=== PATIENT | male | born 1990 | race Caucasian/White ===

== ENCOUNTER 2016-12-27 10:27 | Emergency (ER) | payer MEDICAID ==
[~2016-12-27] VITALS: Ht 157.5 cm; Wt 47.6 kg
[~2016-12-27 10:27] MED LIST: FLEXERIL10 MG PO; IBU-8800 MG PO; KEFLEX 500MG.500 MG PO; MOTRIN400 MG PO; NOMEDS *; PEN-VK500 MG PO; VOLTAREN75 MG PO
[2016-12-27 11:06] VITALS: BP 127/94
--- NOTE | 2016-12-27 11:07 | Urgent Treatment Center Report ---
History of Present Issue Date/Time Seen by Provider 12/27/16 1035 Visit Reason Pt arrived:Walked Presenting Problem:PT STATES HE HAS A BUG IN HIS LEFT EAR Location if Accident: Onset of symptoms date/time:/ or onset unknown for:MEDICAL HX UNKNOWN Have you (or family members/close friends) recently traveled outside the [place]? N If Yes, where/when: Have you had exposure to infectious disease within the past month? TB? Other? Specify: c/o waking up to feeling a bug crawling into his left ear. Immediately tried to get it out by flushing w/ water. Still feels it is in there and moving "but can' t find its way out". Denies ear pain "other then feeling it in there" Source patient Exam Limitations no limitations ALLERGIES Coded Allergies: codeine (Intermediate, ITCHING 12/27/16) Home Medications Reported Medications No Home Medications (NO HOME MEDICATIONS) 1 X * ONCE History Medical History General CAD? No Angina: No CA: No Hypertension? No Hyperlipidemia? No CHF? No DVT? No PE? No COPD? No Asthma? No Anemia? No GERD? No Gastric ulcers? No GI Bleed? No Hernia? No Thyroid Problems? No Hypothyroidism? No CVA? No Seizures? No Diabetes? No Renal Insuffiency? No UTI? No Stones? No BPH? No GB Disease: No Nephritic Syndrome? No Asplenia? No Hepatitis? No Sickle Cell Disease? No Arthritis? No Migraines? No Cataracts? No Glaucoma? No MRSA? No HIV? No TB? No Anxiety? No Depression? No Cancer? No More? No Immunization HX DT/Tetanus 1-4 YRS Surgical Hx Previous Surgery?N Social History Smoking Hx Smoker: Current Every Day Smoker Tobacco: Yes Type Cigarettes Packs/day 1 1/2 - 2 Packs Alcohol Alcohol: No Review of Systems All Other Systems Reviewed and Negative Constitutional denies fever, denies malaise ENT see HPI. denies: ear pain, ear discharge, other (slightly decreased hearing). Respiratory denies shortness of breath Psychiatric/Neurological denies headache, denies other (dizziness) Physical Exam Vital Signs Vital Signs Date Time Temp Pulse Resp B/P Pulse O2 O2 Flow FiO2 Ox Delivery Rate 12/27 1106 98.0 75 18 127/94 99 12/27 1039 98.0 75 18 127/94 99 General Appearance normal appearance, no apparent distress Ear, Nose, Throat normal pharynx, right EAC and TM normal, large cockroach appears traped in left middle ear completely blocking view of TM Neck non-tender, supple Respiratory Status No: respiratory distress. Cardiovascular no peripheral edema Neurologic alert Skin normal color, warm/dry Medical Decision Making LABS/Meds/Orders Pt receiving controlled substance in ED? No Consult MD Physician Consult Consult/PCP Dr. Arredondo, ENT Time Called 1100 Reason Pt. Condition Comments Spoke to Dr. morgan Huggins's RN. They are willing to see patient. Send him directly to their office. Procedures FB Removal (excluding Eyes) FB Removal Risks/benefits discussed with pt/guardian? Yes Location/Suspected object left EAC, cockroach Anesthesia None Foreign Body (Not Eyes) Remove Complicated, Cerumen spatula used (Alligator forceps used), Irrigation ml- ( 300ml warm soapy water). Risk of retained FB explained to pt/guardian? Yes (reporting to ENT immediately) Progress Despite irrigation and forceps, unable to removed insect. pt tolerated procedure well and agrees to report directly to ENT if he is able to see him today. Departure Departure Time of Disposition 1102 Disposition DC Home or Self Care(routine) Clinical Impression Primary Impression: Foreign body in left ear, initial encounter Condition STABLE Referrals Raymond Arredondo MD Patient Instructions DI for Removal of Foreign Body From Ear Additional Instructions Unable to remove insect, Report directly to Dr. Arredondo's office. he is willing to see you now. Discharge Counseling Counseled pt/family regarding diagnosis, follow up needs at 1805
--- OUTSIDE RECORDS SUMMARY | 2017-01-03 18:29 | External Medical Summary Rpt | CCD ---
Author Author , ARIC Organization ARIC Address Unknown Phone [email or web address] Care Team Providers Care Oysterman Name Role Phone WHELAN BRO WHELAN Unavailable Unavailable BRO CLEOPATRA BRO, WHELAN Unavailable Unavailable BRO [facility] Unavailable Unavailable SERVICE, [facility] SUZAN AJIT, Unavailable Unavailable SUZAN AJIT SUZAN AJIT, Unavailable Unavailable SUZAN AJIT SUZAN, GISSELLE, Unavailable Unavailable SUZAN, GISSELLE [facility], Unavailable [facility]available [facility] [place]available [place], [facility] [place] MELISSA BRIAN, MELISSA Unavailable Unavailable BRIAN [facility] Unavailable Unavailable INC, [facility] [place] [facility] Unavailable Unavailable IM[facility]ING [facility], [facility] Mayra Muonz MD, Unavailable Unavailable Mayra Munoz MD [facility] Unavailable Unavailable SERVICES, [facility] CHANDRAKANT JONSE, Unavailable Unavailable CH[facility]DRAKANT JONES [facility], Unavailable Unavailable PLL[facility], [facility] RENUSCH, RENUSCH Unavailable Unavailable SCIFRES ANG, SCIFRES Unavailable Unavailable ANG SCIFRES ANG, SCIFRES Unavailable Unavailable ANG SOKAN, DONNIE O, Unavailable Unavailable SOKAN, DONNIE O WEHRMAN III MARQUES, Unavailable Unavailable WEHRMAN III MIKE LLANES Unavailable Unavailable MIKE BRADSHAW Unavailable Unavailable YUKO GU, Unavailable Unavailable YUKO GU Continuity of Care Document - 04-01-2007 through 2016 Problems Code Diagnosis DOS Provider Status G70673 OTHER 07-27-2016 [facility] JOINT PLLC DISORDERS LT ANKLE & FOOT D25493 PAIN IN 07-27-2016 [place] LEFT FOOT [facility] H5213 MYOPIA 12-23-2015 SCIFRES ANG BILATERAL 305.1 305.1 04-13-2013 [facility] TOBACCO USE [facility] DISORDER Hospital 522.5 522.5 04-13-2013 [facility] PERIAPICAL [facility] ABSCESS Hospital 5225 PERIAPICAL 04-13-2013 MIKE SHAIKH ABSCESS WITHOUT SINUS 7842 SWELLING 04-13-2013 MIKE SHAIKH MASS OR LUMP IN HEAD AND NECK V14.8 V14.8 04-13-2013 [facility] HX-DRUG [facility] ALLERGY [facility] 21813 PAIN IN 12-25-2012 SUZAN JOINT AJIT PELVIC REGION AND THIGH 28165 ABDOMINAL 12-25-2012 SUZAN PAIN OTHER AJIT SPECIFIED SITE 8485 PELVIC 12-25-2012 WHELAN BRO SPRAIN AND STRAINS 04368 OTHER 10-24-2011 [place] DISEASES OF MEDICAL NASAL IMAGING ASS CAVITY AND SINUSES 920 CONTUSION 10-24-2011 [facility] OF FACE [facility] SCALP AND INC NECK EXCEPT EYE E9179 OTHER 10-24-2011 [place] STRIKING MEDICAL AGAINST IMAGING ASS W/WO SUBSEQUENT FALL 21965 PAIN IN 12-10-2009 [facility] JOINT, EMERGENCY SHOULDER SERVICES REGION 68144 CONTUSION 12-10-2009 [facility] OF SHOULDER [facility] HOSP REGION INC 02665 SWELLING OF 11-19-2009 [place] LIMB MEDICAL IM[facility] ASS 40357 UNSPECIFIED 11-19-2009 [facility] SITE OF EMERGENCY ANKLE SERVICES SPRAIN AND STRAIN 9248 CONTUSION 08-22-2009 [facility] OF MULTIPLE EMERGENCY SITES NEC SERVICES ASSOCIATES 73156 INJURY OF 08-22-2009 [place] FACE AND MEDICAL NECK OTHER IMAGING AND ASSOCIATES UNSPECIFIED E8494 PLACE OF 12-03-[address] [place] [address]ENCE MEDICAL PL[address] IMAGING RECREATION ASSOCIATES AND SPORT E927 OVEREXERTIO 12-03-2007 [place] N&STRENUOUS MEDICAL &REPETITIVE IMAGING ASSOCIATES MVMNTS/LOAD S 8471 THORACIC 10-12-2007 [facility] SPRAIN AND MEM [facility]OS[facility] STRAIN INC V1549 OTH PERS HX 09-16-2007 [facility] PSYCHOLOGIC AL TRAUMA PRS HAZS HLTH 54794 OTHER 04-01-2007 [facility] [place] [address] CONCUSSION 04-01-2007 [facility] WITH LOC OF [facility] 30 MINUTES [facility] OR LESS PROF SERV E9178 STRIKE 04-01-2007 [place] AGNST/STRUC MEDICAL K ACC OTH IMAGING STATNRY OBJ ASSOCIATES W/FALL Allergies, Adverse Reactions, Alerts Type Drug Allergy Adverse Reaction to Substance Substance Reaction Severity Codeine I-RASH Mild Medications Na ND Rx Da Fi Fi Am Da Di Ph RX Ph St me C No te ll ll ou ys ag ar # ys at rm s nt no ma ic us Or Da si cy ia de te s n re d LI 00 01 0 No DO 05 -2 CA 48 0- Lo IN 50 20 ng E 01 14 er 2% 6 Ac ti SC ve OU S 15 ML UD C CE 00 06 06 0 40 10 EA 17 SO Ac PH 09 -0 -[address] 81 KA ti AL 33 SI 23 N ve EX 14 20 20 DE BA IN 70 10 10 BA 5 PH TU 50 AR ND 0 MA E MG CY O CA OF PS UL CY E NT HI AN A IB 53 06 06 0 15 5 EA 17 SO Ac UP 74 -0 -[address] 81 KA ti RO 60 SI 24 N ve FE 46 20 20 DE BA N 60 10 10 BA 80 5 PH TU 0 AR ND MG MA E CY O TA BL OF ET CY NT HI AN A Vital Signs 04-13-2013 13:24 Name Value Interpretat Reference Comment ion Range BP 82 mm[Hg] Diastolic BP Systolic 121 mm[Hg] Heart 94 /min Rate/Pulse O2% 98 % Respiratory 16 /min Rate 04-13-2013 13:23 Name Value Interpretat Reference Comment ion Range Body 98.5 [degF] Temperature BP 89 mm[Hg] Diastolic BP Systolic 125 mm[Hg] Heart 93 /min Rate/Pulse O2% 95 % Respiratory 20 /min Rate 12-25-2012 16:26 Name Value Interpretat Reference Comment ion Range Body 98.3 [degF] Temperature BP 76 mm[Hg] Diastolic BP Systolic 151 mm[Hg] Heart 89 /min Rate/Pulse O2% 98 % Respiratory 20 /min Rate Results Labs Lab Lab Date Result Refere Interp Status Commen Order Detail nces retati t Range on URINALYSIS/COMPLETE (12-25-2012 16:00) URINE YELLOW YELLOW complet COLOR 013 ed 16:00 URINE CLEAR CLEAR complet APPEARA 013 ed NCE 16:00 URINE NEGATIV NEG complet GLUCOSE 013 E ed - 16:00 DIPSTIC K URINE NEGATIV NEG complet BILIRUB 013 E ed IN - 16:00 DIPSTIC K URINE NEGATIV NEG complet KETONE 013 E mg/dL ed 16:00 URINE 1.015 1.005-1 complet SPECIFI 013 UNK .030 ed C 16:00 GRAVITY URINE NEGATIV NEG complet BLOOD 013 E ed 16:00 URINE 6.5 UNK 5.0-8.5 complet PH 013 ed 16:00 URINE NEGATIV NEG complet PROTEIN 013 E mg/dL ed - 16:00 DIPSTIC K URINE 1.0 NEG complet UROBILI 013 E.U./dL ed NOGEN - 16:00 DIPSTIC K URINE NEGATIV NEG complet NITRATE 013 E ed - 16:00 DIPSTIC K URINE NEGATIV NEG complet LEUK 013 E ed ESTERAS 16:00 E URINE OCC OCC complet SQUAMOU 013 #/hpf ed S CELLS 16:00 Procedures Procedure DOS Code Location Performer Comment RADEX 43782 [facility] FOOT 7 [facility] COMPLETE INC INC MINIMUM 3 VIEWS OPHTH 26876 [facility] 6 ANG ANG XM&EVAL COMPRE NEW PT 1/> VST RADEX 13393 SUZAN SUZAN HIPS 3 AJIT AJIT BILATERAL 2 VIEWS ANTEROPOS T PELVIS RADEX 77292 [facility] ALBRIGHT NASAL 2 [facility] BONES INC INC COMPLETE MINIMUM 3 VIEWS RADEX 94011 [facility] ALBRIGHT ANKLE 0 [facility] COMPLETE INC INC MINIMUM 3 VIEWS 3D 64143 [facility] ALBRIGHT RENDERING 0 [facility] W/INTERP INC INC & [place] [address] [facility] NAT[facility] MAXILLOFA 0 MEM HOSP MEM [facility]OSP CIAL W/O INC INC CONTRAST MATERIAL 3D 92093 [place] SUZAN, RENDERING 0 MEDICAL GISSELLE IMAGING W/INTERP& [place]OCI[place] [address] [facility] ALBRIGHT HEAD/BRAI 0 MEM [facility] N W/O INC INC CONTRAST MATERIAL RADEX 75518 [place] ROBERT, ANKLE 8 MEDICAL CHANDRAKANT P COMPLETE IMAGING MINIMUM 3 ASSOCIATE VIEWS S RADEX 42614 [facility] ALBRIGHT FOOT 8 [facility]OS[facility] COMPLETE INC INC MINIMUM 3 VIEWS GROUND A0425 [facility] AM[facility]ULANCE AMBULANCE PER SERVICE SERVICE STATUTE MILE AMBULANCE A0429 [facility] SERVICE 8 AMBULANCE AMBULANCE BLS SERVICE SERVICE EMERGENCY TRANSPORT 3D 70255 [facility] ALBRIGHT RENDERING 8 [facility] W/INTERP INC INC & [place] [address] [facility] AL[facility]IGHT HEAD/BRAI 8 [facility] N W/O INC INC CONTRAST MATERIAL Encounters Encounter Start End Date Code Location Performer Type Date EMERGENCY 65299 [facility] 7 7 [facility] DE[facility] T VISIT LOW/MODER SEVERITY HOSPITAL [facility] - 7 7 [facility] T EMERGENCY 76490 [facility] [place] 7 PHYS[facility]IAN DEPART[facility], [facility] T VISIT MODERATE SEVERITY Emergency WILLIAM Munoz MD (ER) 4 13:06 4 13:27 [facility] EMERGENCY 48923 MIKE SHAIKH 4 4 DEPARTMEN T VISIT MODERATE SEVERITY Emergency WILLIAM WHELAN MD (ER) 3 15:58 3 16:27 [facility] EMERGENCY 18438 CLEOPATRA WHELAN 3 3 [facility] DEPARTMEN T VISIT MODERATE SEVERITY EMERGENCY 37475 [facility] 2 2 [facility] T VISIT LOW/MODER SEVERITY EMERGENCY 20266 MELISSA TORRES 2 2 [facility] DEPARTMEN T VISIT HIGH/URGE NT SEVERITY HOSPITAL [facility] - 2 2 [facility] OUTPATIEN INC T EMERGENCY 64914 ALICIA CLINE 0 0 EMERGENCY III [facility] DEPARTMEN SERVICES T VISIT MODERATE SEVERITY EMERGENCY 72133 [facility] 0 0 [facility] DEPARTMEN INC T VISIT LOW/MODER SEVERITY HOSPITAL [facility] - 0 0 [facility] OUTPATIEN INC T HOSPITAL [facility] - 0 0 [facility] OUTPATIEN INC T EMERGENCY 30773 ALICIA TORRES 0 0 [facility]Y [facility] VISIT MODERATE SEVERITY EMERGENCY 51022 [facility] 0 0 [facility] DEPARTMEN INC T VISIT LOW/MODER SEVERITY HOSPITAL [facility] - 0 0 [facility] OUTPATIEN INC T EMERGENCY 40591 [facility] 0 0 [facility] DEPARTMEN INC T VISIT LOW/MODER SEVERITY EMERGENCY 09100 ALICIA RESENDEZ, DEPT 0 0 EMERGENCY DONNIE VISIT SERVICES O HIGH SEVERITY& ASSOCIATE THREAT S FUN EMERGENCY 33928 [facility] 8 8 [facility] DEPARTMEN INC T VISIT MODERATE SEVERITY HOSPITAL [facility] - 8 8 [facility] OUTPATIEN INC T EMERGENCY 46965 [facility] 8 8 [facility] DEPARTMEN INC T VISIT LOW/MODER SEVERITY HOSPITAL [facility] - 8 8 [facility] OUTPATIEN INC T EMERGENCY 33712 [facility] GU, 8 8 [facility] T VISIT PROF SERV LOW/MODER SEVERITY HOSPITAL [facility] - 8 8 [facility] OUTPATIEN INC T EMERGENCY 28071 [facility] 8 8 [facility] DEPARTMEN INC T VISIT MODERATE SEVERITY
--- OUTSIDE RECORDS SUMMARY | 2017-01-03 18:29 | External Medical Summary Rpt | CCD ---
Author Author , ARIC CORBETT Address Unknown Phone [email or web address] Care Team Providers Care Boat Painter Name Role Phone CLEOPATRA BRO, WHELAN Unavailable Unavailable BRO WHELAN BRO, WHELAN Unavailable Unavailable BRO IZQUIERDO, IZQUIERDO Unavailable Unavailable [facility] Unavailable Unavailable SERVICE, [employer] [facility] SUZAN AJIT, Unavailable Unavailable SUZAN AJIT SUZAN AJIT, Unavailable Unavailable SUZAN AJIT SUZAN, GISSELLE, Unavailable Unavailable SZUAN, GISSELLE [facility], Unavailable Unavailable [facility]available Unavailable [place], [facility] [place] MELISSA BRIAN, MELISSA Unavailable Unavailable BRIAN [facility] Unavailable Unavailable INC, [facility] Unavailable Unavailable IMAGING ASS, [facility] Unavailable Unavailable SERVICES, [facility] ROBERT [facility]ITE Unavailable Unavailable CHANDRAKANT JO, Unavailable Unavailable CHANDRAKANT JONES [facility], Unavailable Unavailable PLLC, [facility] RENUSCH, RENUSCH Unavailable Unavailable SCIFRES ANG, SCIFRES Unavailable Unavailable ANG SCIFRES ANG, SCIFRES Unavailable Unavailable ANG SOKAN, DONNIE O, Unavailable Unavailable SOKAN, DONNIE O WEHRMAN III MARQUES, Unavailable Unavailable WEHRMAN III MARQUES MIKE SHAIKH, MIKE SHAIKH Unavailable Unavailable MIKE SHAIKH, MIKE SHAIKH Unavailable Unavailable YUKO GU, Unavailable Unavailable YUKO GU Purpose Continuity of Care Document - 04-01-2007 through 2016 Problems Code Diagnosis DOS Provider Status [id number] OTHER 07-27-2016 [facility] SPECIFIED [facility]ANS, JOINT PLLC DISORDERS LT ANKLE & FOOT [id number] PAIN IN 07-27-2016 [place] LEFT FOOT MEDICAL IM[facility]ING ASS H5213 MYOPIA 12-23-2015 SCIFRES ANG BILATERAL 5225 PERIAPICAL 04-13-2013 MIKE SHAIKH ABSCESS WITHOUT SINUS 7842 SWELLING 04-13-2013 MIKE SHAIKH MASS OR LUMP IN HEAD AND NECK 07207 PAIN IN 12-25-2012 SUZAN JOINT AJIT [place]ELVIC REGION AND THIGH 92960 ABDOMINAL 12-25-2012 SUZAN PAIN OTHER AJIT SPECIFIED SITE 8485 PELVIC 12-25-2012 CLEOPATRA BRO SPRAIN AND STRAINS 48566 OTHER 10-24-2011 [place] DISEASES OF MEDICAL NASAL IMAGING ASS CAVITY AND SINUSES 920 CONTUSION 10-24-2011 [facility] OF FACE [facility] SCALP AND INC NECK EXCEPT EYE E9179 OTHER 10-24-2011 [place] STRIKING MEDICAL AGAINST IMAGING ASS W/WO SUBSEQUENT FALL 06248 PAIN IN 12-10-2009 [facility] JOINT, EMERGENCY SHOULDER SERVICES REGION 95374 CONTUSION 12-10-2009 [facility] OF SHOULDER MEM HOSP REGION INC 97617 SWELLING OF 11-19-2009 [place] LIMB MEDICAL IM[facility] ASS 64951 UNSPECIFIED 11-19-2009 [facility] SITE OF EMERGENCY ANKLE SERVICES SPRAIN AND STRAIN 9248 CONTUSION 08-22-2009 [facility] OF MULTIPLE EMERGENCY SITES NEC SERVICES ASSOCIATES 25511 INJURY OF 08-22-2009 [place] FACE AND MEDICAL NECK OTHER IMAGING AND ASSOCIATES UNSPECIFIED E8494 PLACE OF 12-03-[address] [place] [address] IMAGING RECREATION ASSOCIATES AND SPORT E927 OVEREXERTIO 12-03-2007 [place] N&STRENUOUS MEDICAL &REPETITIVE IMAGING ASSOCIATES MVMNTS/LOAD S 8471 THORACIC 10-12-2007 [facility] SPRAIN AND MEM HOS[facility] STRAIN INC V1549 OTH PERS HX 09-16-2007 [facility] PUBLIC [facility] PSYCHOLOGIC AL TRAUMA PRS HAZS HLTH 82511 OTHER 04-01-2007 [facility] [place] [address] CONCUSSION 04-01-2007 [facility] WITH LOC OF [facility] 30 [facility] OR LESS PROF SERV E9178 STRIKE 04-01-2007 [place] AGNST/STRUC MEDICAL K ACC OTH IMAGING STATNRY OBJ ASSOCIATES W/FALL Medications Na ND Rx Da Fi Fi Am Da Di Ph RX Ph St me C No te ll ll ou ys ag ar # ys at rm s nt no ma ic us Or Da si cy ia de te s n re d CE 00 06 06 0 40 10 EA 17 SO Ac PH 09 -0 -[address] 81 KA ti AL 33 1- 1- 00 SI 23 N ve EX 14 20 20 DE BA IN 70 10 10 BA 5 PH TU 50 AR ND 0 MA E MG CY O CA OF PS UL CY E NT HI AN A IB 53 06 06 0 15 5 EA 17 SO Ac UP 74 -0 -[address] 81 KA ti RO 60 1- 1- 00 SI 24 N ve FE 46 20 20 DE BA N 60 10 10 BA 80 5 PH TU 0 AR ND MG MA E CY O TA BL OF ET CY NT HI AN A Procedures Procedure DOS Code Location Performer Comment RADEX 43178 [place] IZQUIERDO FOOT 7 MEDICAL COMPLETE IMAGING MINIMUM 3 ASS VIEWS OPHTH 73649 SCIFRES SCIFRES MEDICAL 6 ANG ANG XM&EVAL COMPRE NEW PT 1/> VST RADEX 48058 SUZAN SUZAN HIPS 3 AJIT AJIT BILATERAL 2 VIEWS ANTEROPOS T PELVIS RADEX 80463 [place] SUZAN NASAL 2 MEDICAL AJIT BONES IMAGING COMPLETE ASS MINIMUM 3 VIEWS RADEX 65452 [place] ROBERT ANKLE 0 MEDICAL RICHARD COMPLETE IMAGING MINIM[place] [address] [place] [address] [place] SUZAN, MAXILLOFA 0 MEDICAL GISSELLE CIAL W/O IMAGING CONTRAST ASSOCIATE MATERIAL S 3D 69803 [place] SUZAN, RENDERING 0 MEDICAL GISSELLE IMAGING W/INTERP& ASSOCIATE POSTPROC S DIFF WORK STATION 3D 53845 [place] SUZAN, RENDERING 0 MEDICAL GISSELLE W/INTERP IMAGING & [place] [address] [place] SUZAN, HEAD/BRAI 0 MEDICAL GISSELLE N W/O IMAGING CONTRAST ASSOCIATE MATERIAL S RADEX 75650 [facility] ALBRIGHT ANKLE 8 [facility] COMPLETE INC INC MINIMUM 3 VIEWS RADEX 10854 [place] ROBERT, FOOT 8 MEDICAL CHANDRAKANT P COMPLETE IMAGING MINIMUM 3 ASSOCIATE VIEWS S GROUND A0425 [facility] MILEAGE 8 AMBULANCE AMBULANCE PER SERVICE SERVICE STATUTE MILE AMBULANCE A0429 [facility] SERVICE 8 AMBULANCE AMBULANCE BLS SERVICE SERVICE EMERGENCY TRANSPORT 3D 51994 [facility] [facility] JONES, RENDERING 8 MEDICAL CHANDRAKANT P W/INTERP IMAGING & [place] [address] [facility]ONES, HEAD/BRAI 8 MEDICAL CHANDRAKANT P N W/O IMAGING CONTRAST ASSOCIATE MATERIAL S Encounters Encounter Start End Date Code Location Performer Type Date EMERGENCY 34750 [facility] JONES 7 7 PHYSICIAN DEPARTMEN S, [facility] T VISIT MODERATE SEVERITY HOSPITAL [facility] - 7 7 [facility] OUTPATIEN INC T EMERGENCY 17059 [facility] 7 7 [facility] DEPARTMEN INC T VISIT LOW/MODER SEVERITY EMERGENCY 23084 MIKE SHAIKH MIKE SHAIKH 4 4 DEPARTMEN T VISIT MODERATE SEVERITY EMERGENCY 59096 CLEOPATRA WHELAN 3 3 [facility] DEPARTMEN T VISIT MODERATE SEVERITY EMERGENCY 70554 MELISSA TORRES 2 2 [facility] DEPARTMEN T VISIT HIGH/URGE NT SEVERITY HOSPITAL [facility] - 2 2 [facility] 94719 [facility] VIS[facility] LOW/MODER SEVERITY EMERGENCY 69756 ALICIA CLINE 0 0 EMERGENCY III [facility] DEPARTMEN SERVICES T VISIT MODERATE SEVERITY HOSPITAL [facility] - 0 0 [facility] OUTPATIEN INC T EMERGENCY 57153 [facility] 0 [facility] VISIT LOW/MODER SEVERITY EMERGENCY 98600 ALICIA TORRES 0 0 EMERGENCY [facility] DEPARTMEN SERVICES T VISIT MODERATE SEVERITY HOSPITAL [facility] - 0 0 [facility] OUTPATIEN INC T EMERGENCY 22414 [facility] 0 0 [facility] DEPARTMEN INC T VISIT LOW/MODER SEVERITY EMERGENCY 04107 [facility] 0 0 [facility] DEPARTMEN INC T VISIT LOW/MODER SEVERITY HOSPITAL [facility] - 0 0 [facility] OUTPATIEN INC T EMERGENCY 65820 GUALBERTO HOLLINS 0 0 EMERGENCY DONNIE VISIT SERVICES O HIGH SEVERITY& ASSOCIATE THREAT S FUNCJ EMERGENCY 15571 [facility] 8 8 [facility] [place]NOTE 2] T VISIT MODERATE SEVERITY HOSPITAL [facility] - 8 8 [facility] - 8 8 [facility] EMERGENCY 89650 [facility] 8 8 [facility] [place]NOTE 2] T VISIT LOW/MODER SEVERITY HOSPITAL [facility] - 8 8 [facility] EM[facility]ENC[facility] 77527 [facility] GU, 8 8 [facility] T VISIT PROF SERV LOW/MODER SEVERITY EMERGENCY 99288 [facility] 8 8 [facility] [place]NOTE 2] T VISIT MODERATE SEVERITY
--- OUTSIDE RECORDS SUMMARY | 2017-01-03 18:29 | External Medical Summary Rpt | CCD ---
Author Author , YA CORBETT Address Unknown Phone [email or web address] Immunization Name Date Rout CVX Reac Dose Comm Prov Is Faci e tion ent ider Refu lity Give sed n Hep 09-23 8 999 Hist H149 No H149 B, 12-12 ori ped/ 05 al adol Info rmat ion - Sour ce Unsp ecif ied MMR - 3 999 Hist H149 No H149 12-12 oric 05 al Info rmat ion - Sour ce Unsp ecif ied
--- OUTSIDE RECORDS SUMMARY | 2017-01-03 18:29 | External Medical Summary Rpt | CCD ---
Author Author , ARIC Organization ARIC Address Unknown Phone [email or web address] Care Team Providers Care Lombardi Developer Name Role Phone WHELAN BRO WHELAN Unavailable Unavailable BRO CLEOPATRA BRO, WHELAN Unavailable Unavailable BRO [email or web address] Unavailable Unavailable SERVICE, [email or web address] SUZAN AJIT, Unavailable Unavailable SUZAN AJIT SUZAN AJIT, Unavailable Unavailable SUZAN AJIT SUZAN, GISSELLE, Unavailable Unavailable SUZAN, GISSELLE [facility], Unavailable Unavailable [facility] Unavailable [place]available [place] [facility] [place] MELISSA BRIAN, MELISSA Unavailable Unavailable BRIAN [facility] Un[facility] Unavailable INC, [facility] Unavailable Unavailable [facility]ING [facility], [facility] Mayra Munoz MD, Unavailable Unavailable Mayra Munoz MD [facility] Unavailable Unavailable SERVICES, [facility] CHANDRAKANT JONES, Unavailable Unavailable CHNADRAKANT JONES [facility], Unavailable Unavailable PLL[facility], [facility], [...] 2016 Problems Code Diagnosis DOS Provider Status [id number] OTHER 07-27-2016 [facility] SPECIFIED PHYSICIANS, JOINT PLLC DISORDERS LT ANKLE & FOOT [id number] PAIN IN 07-27-2016 [place] LEFT FOOT [facility] 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 MYOPIA 12-23-2015 SCIFRES ANG BILATERAL 305.1 305.1 04-13-2013 [facility] TOBACCO USE [facility] DISORDER Hospital 522.5 522.5 04-13-2013 [facility] PERIAPICAL [facility] ABSCESS Hospital 5225 PERIAPICAL 04-13-2013 MIKE SHAIKH ABSCESS WITHOUT SINUS 7842 SWELLING 04-13-2013 MIKE SHAIKH MASS OR LUMP IN HEAD AND NECK V14.8 V14.8 04-13-2013 [facility] HX-DRUG [facility] ALLERGY [facility] 54662 PAIN IN 12-25-2012 SUZAN JOINT AJIT [place] REGION AND THIGH 55376 ABDOMINAL 12-25-2012 SUZAN PAIN OTHER AJIT SPECIFIED SITE 8485 PELVIC 12-25-2012 WHELAN BRO SPRAIN AND STRAINS 01772 OTHER 10-24-2011 [place] DISEASES OF MEDICAL NASAL IMAGING ASS CAVITY AND SINUSES 920 CONTUSION 10-24-2011 [facility] OF [facility] SCALP AND INC NECK EXCEPT EYE E9179 OTHER 10-24-2011 [place] STRIKING MEDICAL AGAINST IMAGING ASS W/WO SUBSEQUENT FALL 08373 PAIN IN 12-10-2009 [facility] JOINT, EMERGENCY SHOULDER SERVICES REGION 03486 CONTUSION 12-10-2009 [facility] OF SHOULDER MEM HOSP REGION INC 07123 SWELLING OF 11-19-2009 [place] LIMB [facility]ICAL [facility] 76950 UNSPECIFIED 11-19-2009 [facility] SITE OF EMERGENCY ANKLE SERVICES SPRAIN AND STRAIN 9248 CONTUSION 08-22-2009 [facility] OF MULTIPLE EMERGENCY SITES NEC SERVICES ASSOCIATES 58563 INJURY OF 08-22-2009 [place] FACE AND MEDICAL NECK OTHER IMAGING AND ASSOCIATES UNSPECIFIED E8494 PLACE OF 12-03-[address] [place] [address] PL[address] IMAGING RECREATION ASSOCIATES AND SPORT E927 OVEREXERTIO 12-03-2007 [place] N&STRENUOUS MEDICAL &REPETITIVE IMAGING ASSOCIATES MVMNTS/LOAD S 8471 THORACIC 10-12-2007 [facility] SPRAIN AND MEM [facility] STRAIN INC V1549 OTH PERS HX 09-16-2007 [facility] PSYCHOLOGIC AL TRAUMA PRS HAZS HLTH 18348 OTHER 04-01-2007 [facility] [place] [address] CONCUSSION 04-01-2007 [facility] WITH LOC OF [facility] 30 MINUTES [facility] OR LESS PROF SERV E9178 STRIKE 04-01-2007 [place] AGNST/STRUC MEDICAL K ACC OTH IMAGING STATNRY [...] Procedure DOS Code Location Performer Comment RADEX 00182 [facility] AL[facility]IGHT FOOT 7 [facility] COMPLETE INC INC MINIMUM 3 VIEWS OPHTH 52890 [facility] ANG ANG XM&EVAL COMPRE NEW PT 1/> VST RADEX 52413 SUZAN SUZAN HIPS 3 AJIT AJIT BILATERAL 2 VIEWS ANTEROPOS T PELVIS RADEX 38591 [facility] AL[facility]IGHT NASAL 2 [facility] BONES INC INC COMPLETE MINIMUM 3 VIEWS RADEX 91586 [facility]IGHT ANKLE 0 [facility] COMPLETE INC INC MINIMUM 3 VIEWS 3D 54043 [facility]IGHT RENDERING 0 [facility] W/INTERP INC INC & [place] [address] [facility] MAXILLOFA 0 MEM HOSP MEM [facility]OS[facility] CIAL W/O INC INC CONTRAST MATERIAL 3D 50719 [place] SUZAN, RENDERING 0 MEDICAL GISSELLE IMAGING W/INTERP& [place]OCI[place] [address] [facility] ALBRIGHT HEAD/BRAI 0 [facility] N W/O INC INC CONTRAST MATERIAL RADEX 80331 [place] ROBERT, ANKLE 8 MEDICAL CHANDRAKANT P COMPLETE IMAGING MINIMUM 3 ASSOCIATE VIEWS S RADEX 47331 [facility] AL[facility]IGHT FOOT 8 [facility] COMPLETE INC INC MINIMUM 3 VIEWS GROUND A0425 [facility]UL[facility] AMBULANCE PER SERVICE SERVICE STATUTE MILE AMBULANCE A0429 [facility] SERVICE 8 AMBULANCE AMBULANCE BLS SERVICE SERVICE EMERGENCY TRANSPORT 3D 26051 [facility] ALBRIGHT RENDERING 8 [facility] W/INTERP INC INC & [place] [address] [facility] ALBRIGHT HEAD/BRAI 8 [facility] N W/O INC INC CONTRAST MATERIAL Encounters Encounter Start End Date Code Location Performer Type Date EMERGENCY 22128 [facility] 7 7 [facility] DEPARTMEN INC T VISIT LOW/MODER SEVERITY HOSPITAL [facility] - 7 7 [facility] OUTPATIEN INC T EMERGENCY 96608 [facility] 7 PHYSICIAN DEPARTMEN S, [facility] T VISIT MODERATE SEVERITY Emergency WILLIAM Munoz MD (ER) 4 13:06 4 13:27 [facility] EMERGENCY 22199 MIKE SHAIKH 4 4 DEPARTMEN T VISIT MODERATE SEVERITY Emergency WILLIAM WHELAN MD (ER) 3 15:58 3 16:27 [facility] EMERGENCY 18165 CLEOPATRA WHELAN 3 3 [facility] DEPARTMEN T VISIT MODERATE SEVERITY EMERGENCY 63873 [facility] 2 2 [facility] DEPARTMEN INC T VISIT LOW/MODER SEVERITY EMERGENCY 31469 MELISSA TORRES 2 2 [facility] DE[facility] T VISIT HIGH/URGE NT SEVERITY HOSPITAL [facility] - 2 2 [facility] OUTPATIEN INC T EMERGENCY 29060 ALICIA CLINE 0 0 EMERGENCY III [facility] DEPARTMEN SERVICES T VISIT MODERATE SEVERITY EMERGENCY 73598 [facility] 0 0 [facility] DEPARTMEN INC T VISIT LOW/MODER SEVERITY HOSPITAL [facility] - 0 0 [facility] OUTPATIEN INC T HOSPITAL [facility] - 0 0 [facility] OUTPATIEN INC T EMERGENCY 54922 ALICIA TORRES 0 0 EMERGENCY [facility] T VISIT MODERATE SEVERITY EMERGENCY 18572 [facility] 0 0 [facility] DEPARTMEN INC T VISIT LOW/MODER SEVERITY HOSPITAL [facility] - 0 0 [facility] OUTPATIEN INC T EMERGENCY 43829 [facility] 0 0 [facility] DEPARTMEN INC T VISIT LOW/MODER SEVERITY EMERGENCY 31128 ALICIA RESENDEZ, DEPT 0 0 EMERGENCY DONNIE VISIT SERVICES O HIGH SEVERITY& ASSOCIATE THREAT S FUN EMERGENCY 75074 [facility] 8 8 [facility] DEPARTMEN INC T VISIT MODERATE SEVERITY HOSPITAL [facility] - 8 8 [facility] OUTPATIEN INC T EMERGENCY 55100 [facility] 8 8 [facility] DEPARTMEN INC T VISIT LOW/MODER SEVERITY HOSPITAL [facility] - 8 8 [facility] OUTPATIEN INC T EMERGENCY 52822 [facility] GU, 8 8 [facility] T VISIT PROF SERV LOW/MODER SEVERITY HOSPITAL [facility] - 8 8 [facility] OUTPATIEN INC T EMERGENCY 18508 [facility] 8 8 [facility] DEPARTMEN INC T VISIT MODERATE SEVERITY
--- OUTSIDE RECORDS SUMMARY | 2017-01-03 18:29 | External Medical Summary Rpt ---
Author Author ARIC Head, [employer] Organization [employer] Address Unknown Phone Unavailable
--- OUTSIDE RECORDS SUMMARY | 2017-01-03 18:29 | External Medical Summary Rpt | CCD ---
Author Author , YA CORBETT Address Unknown Phone [email or web address] Immunization Name Date Rout CVX Reac Dose [...]
--- OUTSIDE RECORDS SUMMARY | 2017-01-03 18:29 | External Medical Summary Rpt | CCD ---
Author Author , ARIC CORBETT Address Unknown Phone Care Team Providers Care Informatics Consultant Name Role Phone CLEOPATRA BRO, WHELAN Unavailable Unavailable BRO WHELAN BRO, WHELAN Unavailable Unavailable BRO IZQUIERDO, IZQUIERDO Unavailable Unavailable [facility] Unavailable Unavailable SERVICE, [facility] SUZAN AJIT, Unavailable Unavailable SUZAN AJIT SUZAN AJIT, Unavailable Unavailable SUZAN AJIT SUZAN, GISSELLE, Unavailable Unavailable SUZAN, GISSELLE [facility], Unavailable Unavailable [facility] Unavailable Unavailable [place], [facility] [place] MELISSA BRIAN, MELISSA Unavailable Unavailable BRIAN [facility] Unavailable Unavailable INC, [facility] Unavailable Unavailable IM[facility]ING [facility], [facility] Unavailable Unavailable SERVICES, [facility] ROBERT WAITE Unavailable Unavailable CHANDRAKANT [...] 2016 Problems Code Diagnosis DOS Provider Status [id number] OTHER 07-27-2016 [facility] SPECIFIED PHYSICIANS, JOINT PLLC DISORDERS LT ANKLE & FOOT [id number] PAIN IN 07-27-2016 [place] LEFT FOOT [facility] H5213 MYOPIA 12-23-2015 SCIFRES ANG BILATERAL 5225 PERIAPICAL 04-13-2013 MIKE SHAIKH ABSCESS WITHOUT SINUS 7842 SWELLING 04-13-2013 MIKE SHAIKH MASS OR LUMP IN HEAD AND NECK 12405 PAIN IN 12-25-2012 SUZAN JOINT AJIT [place] REGION AND THIGH 79465 ABDOMINAL 12-25-2012 SUZAN PAIN OTHER AJIT SPECIFIED SITE 8485 PELVIC 12-25-2012 CLEOPATRA BRO SPRAIN AND STRAINS 06544 OTHER 10-24-2011 [place] DISEASES OF MEDICAL NASAL IMAGING ASS CAVITY AND SINUSES 920 CONTUSION 10-24-2011 [facility] OF FACE [facility] SCALP AND INC NECK EXCEPT EYE E9179 OTHER 10-24-2011 [place] STRIKING MEDICAL AGAINST IMAGING ASS W/WO SUBSEQUENT FALL 93591 PAIN IN 12-10-2009 [facility] JOINT, EMERGENCY SHOULDER SERVICES REGION 56176 CONTUSION 12-10-2009 [facility] OF SHOULDER MEM HOS[facility] REGION INC 71328 SWELLING OF 11-19-2009 [place] LIMB [facility]ICAL IM[facility]ING ASS 07504 UNSPECIFIED 11-19-2009 [facility] SITE OF EMERGENCY ANKLE SERVICES SPRAIN AND STRAIN 9248 CONTUSION 08-22-2009 [facility] OF MULTIPLE EMERGENCY SITES NEC SERVICES ASSOCIATES 73145 INJURY OF 08-22-2009 [place] FACE AND MEDICAL NECK OTHER IMAGING AND ASSOCIATES UNSPECIFIED E8494 PLACE OF 12-03-[address] [place] [address] IMAGING RECREATION ASSOCIATES AND SPORT E927 OVEREXERTIO 12-03-2007 [place] N&STRENUOUS MEDICAL &REPETITIVE IMAGING ASSOCIATES MVMNTS/LOAD S 8471 THORACIC 10-12-2007 [facility] SPRAIN AND MEM HOS[facility] STRAIN INC V1549 OTH PERS HX 09-16-2007 [facility] PSYCHOLOGIC AL TRAUMA PRS HAZS HLTH 99855 OTHER 04-01-2007 [facility] [place] [address] CONCUSSION 04-01-2007 [facility] WITH LOC OF [facility] 30 [facility] OR LESS PROF SERV E9178 STRIKE 04-01-2007 [place] AGNST/STRUC MEDICAL K ACC OTH IMAGING STATNRY [...] Procedure DOS Code Location Performer Comment RADEX 71955 [place] IZQUIERDO FOOT 7 MEDICAL COMPLETE IMAGING MINIMUM 3 ASS VIEWS OPHTH 83787 SCIFRES SCIFRES MEDICAL 6 ANG ANG XM&EVAL COMPRE NEW PT 1/> VST RADEX 50327 SUZAN SZUAN HIPS 3 AJIT AJIT BILATERAL 2 VIEWS ANTEROPOS T PELVIS RADEX 36326 [place] SUZAN NASAL 2 MEDICAL AJIT BONES IMAGING COMPLETE ASS MINIMUM 3 VIEWS RADEX 95285 [place] ROBERT ANKLE 0 MEDICAL RICHARD COMPLETE IMAGING MINIM[place] [address] [place] [address] [place] SUZAN, MAXILLOFA 0 MEDICAL GISSELLE CIAL W/O IMAGING CONTRAST ASSOCIATE MATERIAL S 3D 87986 [place] SUZAN, RENDERING 0 MEDICAL G[place]SELLE IMAGING W/INTERP& ASSOCIATE POSTPROC S DIFF WORK STATION 3D 73052 [place] SUZAN, RENDERING 0 MEDICAL GISSELLE W/INTERP IMAGING & [place] [address] [place] SUZAN, HEAD/BRAI 0 MEDICAL GISSELLE N W/O IMAGING CONTRAST ASSOCIATE MATERIAL S RADEX 24356 [facility] ALBRIGHT ANKLE 8 [facility] COMPLETE INC INC MINIMUM 3 VIEWS RADEX 64504 [place] ROBERT, FOOT 8 MEDICAL CHANDRAKANT P COMPLETE IMAGING MINIMUM 3 ASSOCIATE VIEWS S GROUND A0425 [facility] MILEAGE 8 AMBULANCE AMBULANCE PER SERVICE SERVICE STATUTE MILE AMBULANCE A0429 [facility] SERVICE 8 AMBULANCE AMBULANCE BLS SERVICE SERVICE EMERGENCY TRANSPORT 3D 84770 [facility] JONES, RENDERING 8 MEDICAL CHANDRAKANT P W/INTERP IMAGING & [place] [address] [facility] JONES, HEAD/BRAI 8 MEDICAL CHANDRAKANT P N W/O IMAGING CONTRAST ASSOCIATE MATERIAL S Encounters Encounter Start End Date Code Location Performer Type Date EMERGENCY 48597 ROSEANN JONES 7 7 PHYSICIAN DEPARTMEN S, [facility] T VISIT MODERATE SEVERITY HOSPITAL [facility] - 7 7 [facility] OUTPATIEN INC T EMERGENCY 34101 NAT[facility] 7 7 [facility] DEPARTMEN INC T VISIT LOW/MODER SEVERITY EMERGENCY 34469 MIKE SHAIKH MIKE SHAIKH 4 4 DEPARTMEN T VISIT MODERATE SEVERITY EMERGENCY 48049 CLEOPATRA WHELAN 3 3 [facility] DEPARTMEN T VISIT MODERATE SEVERITY EMERGENCY 42415 MELISSA TORRES 2 2 [facility] DEPARTMEN T VISIT HIGH/URGE NT SEVERITY HOSPITAL [facility] - 2 2 [facility] 14434 [facility] VISIT LOW/MODER SEVERITY EMERGENCY 84021 ALICIA CLINE 0 0 EMERGENCY III [facility] DEPARTMEN SERVICES T VISIT MODERATE SEVERITY HOSPITAL [facility] - 0 0 [facility] OUTPATIEN INC T EMERGENCY 36616 [facility] 0 0 [facility] T VISIT LOW/MODER SEVERITY EMERGENCY 22171 ALICIA TORRES 0 0 EMERGENCY [facility] DEPARTMEN SERVICES T VISIT MODERATE SEVERITY HOSPITAL NAT[facility] - 0 0 [facility] OUTPATIEN INC T EMERGENCY 59599 NAT[facility] 0 0 [facility] DEPARTMEN INC T VISIT LOW/MODER SEVERITY EMERGENCY 58324 [facility] 0 0 [facility] DEPARTMEN INC T VISIT LOW/MODER SEVERITY HOSPITAL NATAL[facility] - 0 0 [facility] OUTPATIEN INC T EMERGENCY 92152 GUALBERTO HOLLINS 0 0 EMERGENCY DONNIE VISIT SERVICES O HIGH SEVERITY& ASSOCIATE THREAT S FUNCJ EMERGENCY 61669 [facility] 8 8 [facility] INC T VISIT MODERATE SEVERITY HOSPITAL [facility] - 8 8 [facility] - 8 8 [facility] 83338 [facility] 8 8 [facility] INC T VISIT LOW/MODER SEVERITY HOSPITAL NAT[facility] - 8 8 [facility] EMERGENCY 50360 [facility] GU, 8 8 [facility] T VISIT PROF SERV LOW/MODER SEVERITY EMERGENCY 41838 [facility] 8 8 [facility] INC T VISIT MODERATE SEVERITY
== END 2016-12-27 11:06 | disposition home or self-care (01) ==
LOC: UTC 10:27
DX: T16.2XXA Foreign body in left ear, initial encounter (principal); Z88.6 Allergy status to analgesic agent; F17.210 Nicotine dependence, cigarettes, uncomplicated

== ENCOUNTER 2016-12-27 11:51 | Day surgery (SDC) | payer MEDICAID ==
[~2016-12-27] VITALS: Ht 160 cm; Wt 45.4 kg
--- NOTE | 2016-12-27 13:55 | Anesthesia Record ---
Anesthesia Record Part I Total IV fluids: 900 EBL (ml): 0 Urine Output: 0 Units of blood given: 0 B/P: 122/84 % SaO2: 99 Pulse: 87 Resps: 10 Temp: 97.5 Patient is: Awake, Stable Stable to PACU at: 1342 at 1354
--- NOTE | 2016-12-27 13:55 | Anesthesia Record ---
Anesthesia Record Part II Discharge time: 141 Destination: Same day surgery PACU nurse assessment review? Yes Patient is: Awake, Stable Anesthesia complications? No at 6157
--- NOTE | 2016-12-27 15:03 | Operative Note ---
Other ENT Procedure Date of Procedure: 12/27/16 Time of Procedure: 1230 Procedure performed: Removal of foreign body left ear Pre-op diagnosis: Foreign body left ear Post-op diagnosis: same Surgeon: Raymond Arredondo Anesthesia: general Pre-procedure antibiotics: Ancef 1 gm Pre-procedure steroid: Decadron 12 mg Description of procedure: With patient under general anesthesia the left ear was prepped and draped. The ear was thoroughly irrigated there was blood and debris in the lateral aspect of the ear canal. That was cleared. There was a impacted insect in the anterior meatal recess. Using the alligator forceps it was removed in entirety and placed in a bottle to return to the patient. The ear was thoroughly irrigated and all the debris was cleared. There was no evidence of any laceration of the tympanic membrane although the ear canal was rather severely bruised. Ciprodex drops were applied. The operating microscope was used for all the procedure. The patient was sent to recovery in good general condition. EBL (ml): 1 at 5319
[2016-12-27 15:42] VITALS: BP 134/80
== END 2016-12-27 14:42 | disposition home or self-care (01) ==
LOC: SDC 11:51 → ENT 11:51
PROVIDERS: Otolaryngology
PROC: 09C4XZZ Extirpation of Matter from Left External Auditory Canal, External Approach (ICD-10-PCS; principal; 2016-12-27 12:30)
DX: T16.2XXA Foreign body in left ear, initial encounter (principal)